=== PATIENT | male | born 1960 | race African-American/Black ===

== ENCOUNTER 2022-03-25 19:58 | Emergency (ER) | payer OTHER ==
[~2022-03-25] VITALS: Ht 175.3 cm; Wt 68.0 kg
[2022-03-25 21:55] LABS: HEMATOCRIT. 42.3 % (42.0-52.0); LYMPHOCYTES % 15.1 % (20.0-50.0); MEAN CORPUSCULAR HEMOGLOBIN 27.8 pg (28.0-32.0); MEAN CORPUSCULAR VOLUME 83.6 fL (80.0-94.0); MEAN PLATELET VOLUME 8.5 fl (7.4-10.4); MONOCYTES % 9.3 % (2.0-8.0); NEUTROPHILS % 74.6 % (40.0-76.0); PLATELET 256 x1000/uL (130-400); RED BLOOD CELL COUNT 5.05 mill/uL (4.7-6.1); RED CELL DISTRIBUTION WIDTH 14.4 % (11.6-14.6)
[2022-03-25 22:08] LABS: CHLORIDE 104 mEq/L (98-107)
[2022-03-26 00:06] VITALS: BP 139/92
== END 2022-03-26 00:05 | disposition home or self-care (01) ==
LOC: ER 19:58
DX: I89.0 Lymphedema, not elsewhere classified (principal); I10 Essential (primary) hypertension; Z98.890 Other specified postprocedural states; W01.0XXA Fall on same level from slipping, tripping and stumbling without subsequent striking against object, initial encounter; Y93.89 Activity, other specified; Y92.018 Other place in single-family (private) house as the place of occurrence of the external cause
CPT/HCPCS: 36415; 71045; 80053; 83880; 84484; 85025; 93970; 99285

== ENCOUNTER 2022-11-17 10:02 | Inpatient (IN) | payer OTHER ==
[~2022-11-17] VITALS: Ht 172.7 cm; Wt 56.2 kg
[2022-11-17 13:12] LABS: HEMATOCRIT. 35.8 % (42.0-52.0); MEAN CORPUSCULAR HEMOGLOBIN 29.3 pg (28.0-32.0); MEAN CORPUSCULAR VOLUME 87.6 fL (80.0-94.0); MEAN PLATELET VOLUME 9.3 fl (7.4-10.4); PLATELET 197 x1000/uL (130-400); RED BLOOD CELL COUNT 4.08 mill/uL (4.7-6.1); RED CELL DISTRIBUTION WIDTH 15.1 % (11.6-14.6)
[2022-11-17 13:15] LABS: CHLORIDE 96 mEq/L (98-107)
[2022-11-17 14:18] LABS: PLATELET ESTIMATE NORMAL
[2022-11-17 14:25] LABS: CHLORIDE 94 mEq/L (98-107)
[2022-11-17] MEDS ORDERED: ENOXAPARIN 60MG/0.6ML SYR SUBCUT NR (16:00)
[2022-11-17 16:12] LABS: T4 FREE 1.51 ng/dL (0.76-1.46)
[2022-11-17 17:12] LABS: CLARITY URINE CLEAR (CLEAR); COLOR URINE DARK YELLOW (YELLOW); KETONES URINE NEGATIVE (NEGATIVE); LEUKOCYTE ESTERASE URINE NEGATIVE (NEGATIVE); NITRITE URINE NEGATIVE (NEGATIVE); OCCULT BLOOD URINE NEGATIVE (NEGATIVE); PROTEIN URINE TRACE (NEGATIVE); SPECIFIC GRAVITY URINE 1.018 (1.005-1.030)
[2022-11-17] MEDS: ASPIRIN 81MG EC TABLET PO SCH (17:18)
[2022-11-18] VITALS (8 sets, daily range): BP systolic 82–127; BP diastolic 56–82
[2022-11-18 06:40] LABS: HEMATOCRIT. 32.8 % (42.0-52.0); HEMOGLOBIN. 11.1 g/dL (14.0-18.0); MEAN CORPUSCULAR HEMOGLOBIN 29.6 pg (28.0-32.0); MEAN CORPUSCULAR VOLUME 87.4 fL (80.0-94.0); MEAN PLATELET VOLUME 9.6 fl (7.4-10.4); PLATELET 168 x1000/uL (130-400); RED BLOOD CELL COUNT 3.75 mill/uL (4.7-6.1); RED CELL DISTRIBUTION WIDTH 15.3 % (11.6-14.6)
[2022-11-18 06:42] LABS: CHLORIDE 95 mEq/L (98-107)
[2022-11-18] MEDS: ASPIRIN 81MG EC TABLET PO SCH (08:41)
[2022-11-18] MEDS ORDERED: POTASSIUM CHLORIDE 20MEQ TABLET SR PO NR (08:45)
[2022-11-18] MEDS: PIPERACILLIN/TAZOBACTAM 3.375 G in DEXTROSE 5% WATER 50 ML IV SCH ×2 (13:04→22:24)
[2022-11-18] MEDS: SODIUM CHLORIDE 0.9% 1,000 ML IV SCH ×2 (13:04→22:24)
[2022-11-18] MEDS ORDERED: IOHEXOL-300 100 ML BOTTLE ONE (18:51)
[2022-11-18] MEDS ORDERED: ONDANSETRON HCL 4MG/2ML INJ IV PRN (23:15)
[2022-11-18] MEDS ORDERED: ALBUTEROL (0.083%) 2.5MG/3ML NEB HHN PRN (23:15)
[2022-11-18] MEDS ORDERED: ACETAMINOPHEN 325MG TABLET PO PRN (23:15)
[2022-11-18] MEDS ORDERED: IPRATROPIUM/ALBUTEROL 0.5-3(2.5)MG/3ML NEB HHN PRN (23:15)
[2022-11-18] MEDS ORDERED: IPRATROPIUM BROMIDE (0.02%) 0.5MG/2.5ML NEB HHN PRN (23:15)
[2022-11-19] VITALS (7 sets, daily range): BP systolic 96–116; BP diastolic 70–82
[2022-11-19 06:06] LABS: CHLORIDE 99 mEq/L (98-107)
[2022-11-19 06:14] LABS: BASOPHILS % 0.2 % (0.0-2.0); EOSINOPHILS % 0.4 % (0.0-5.0); HEMATOCRIT. 33.4 % (42.0-52.0); HEMOGLOBIN. 11.3 g/dL (14.0-18.0); LYMPHOCYTES % 10.7 % (20.0-50.0); MEAN CORPUSCULAR HEMOGLOBIN 29.7 pg (28.0-32.0); MEAN CORPUSCULAR VOLUME 87.7 fL (80.0-94.0); MEAN PLATELET VOLUME 9.9 fl (7.4-10.4); MONOCYTES % 9.7 % (2.0-8.0); PLATELET 186 x1000/uL (130-400); RED CELL DISTRIBUTION WIDTH 14.8 % (11.6-14.6)
[2022-11-19] MEDS: PIPERACILLIN/TAZOBACTAM 3.375 G in DEXTROSE 5% WATER 50 ML IV SCH ×3 (06:39→21:23)
[2022-11-19] MEDS ORDERED: IPRATROPIUM BROMIDE (0.02%) 0.5MG/2.5ML NEB HHN PRN (09:45)
[2022-11-19] MEDS ORDERED: IPRATROPIUM/ALBUTEROL 0.5-3(2.5)MG/3ML NEB HHN PRN (09:45)
[2022-11-19] MEDS ORDERED: ALBUTEROL (0.083%) 2.5MG/3ML NEB HHN PRN (09:45)
[2022-11-19 09:58] LABS: PLATELET ESTIMATE NN
[2022-11-19] MEDS ORDERED: POTASSIUM CHLORIDE 20MEQ TABLET SR PO NR (10:00)
[2022-11-19] MEDS: ASPIRIN 81MG EC TABLET PO SCH (10:11)
[2022-11-19] MEDS: MIDODRINE HCL 5MG TABLET PO SCH ×3 (10:11→17:00)
[2022-11-19] MEDS: SODIUM CHLORIDE 0.9% 1,000 ML IV SCH ×2 (10:14→13:06)
[2022-11-19] MEDS: ACETYLCYSTEINE 100MG/ML 10% VIAL 4ML INH SCH ×2 (11:09→21:50)
[2022-11-19] MEDS ORDERED: IPRATROPIUM/ALBUTEROL 0.5-3(2.5)MG/3ML NEB HHN SCH (12:00)
[2022-11-19] MEDS: IPRATROPIUM BROMIDE (0.02%) 0.5MG/2.5ML NEB HHN SCH (15:24)
[2022-11-19] MEDS: ALBUTEROL (0.083%) 2.5MG/3ML NEB HHN SCH ×3 (15:24→21:50)
[2022-11-19 17:42] LABS: HEPATITIS B SURFACE ANTIGEN NEGATIVE
[2022-11-20] VITALS: BP 117/81
[2022-11-20] MEDS: ALBUTEROL (0.083%) 2.5MG/3ML NEB HHN SCH ×4 (02:06→20:10)
[2022-11-20] MEDS: IPRATROPIUM BROMIDE (0.02%) 0.5MG/2.5ML NEB HHN SCH ×4 (02:07→20:10)
[2022-11-20 04:00] VITALS: BP 103/70
[2022-11-20] MEDS: PIPERACILLIN/TAZOBACTAM 3.375 G in DEXTROSE 5% WATER 50 ML IV SCH ×3 (05:51→21:12)
[2022-11-20 06:53] LABS: BASOPHILS % 0.3 % (0.0-2.0); EOSINOPHILS % 0.5 % (0.0-5.0); HEMATOCRIT. 29.5 % (42.0-52.0); HEMOGLOBIN. 10.2 g/dL (14.0-18.0); LYMPHOCYTES % 12.7 % (20.0-50.0); MEAN CORPUSCULAR VOLUME 86.6 fL (80.0-94.0); MONOCYTES % 13.2 % (2.0-8.0); NEUTROPHILS % 73.3 % (40.0-76.0); PLATELET 205 x1000/uL (130-400); RED BLOOD CELL COUNT 3.41 mill/uL (4.7-6.1); RED CELL DISTRIBUTION WIDTH 14.8 % (11.6-14.6)
[2022-11-20 07:07] LABS: CHLORIDE 103 mEq/L (98-107)
[2022-11-20 08:00] VITALS: BP 109/78
[2022-11-20] MEDS: MIDODRINE HCL 5MG TABLET PO SCH ×3 (08:24→17:00)
[2022-11-20] MEDS: ASPIRIN 81MG EC TABLET PO SCH (08:24)
[2022-11-20] MEDS ORDERED: POTASSIUM CHLORIDE 20MEQ TABLET SR PO NR ×2 (08:30→21:00)
[2022-11-20 12:00] VITALS: BP 104/73
[2022-11-20] MEDS ORDERED: TAMSULOSIN HCL 0.4MG SR CAPSULE PO SCH (12:15)
[2022-11-20] MEDS ORDERED: ASPI-1406 PO (15:52)
[2022-11-20] MEDS ORDERED: ALBU90AE INH (15:52)
[2022-11-20] MEDS ORDERED: AZIT500T8 MT (15:52)
[2022-11-20] MEDS ORDERED: MIDO5TAB4 PO ×2 (15:52)
[2022-11-20] MEDS ORDERED: GUAI600T26 MT (15:52)
[2022-11-20] MEDS ORDERED: ATOR40TA70 MT (15:55)
[2022-11-20 16:00] VITALS: BP 129/88
[2022-11-20] MEDS: ACETYLCYSTEINE 100MG/ML 10% VIAL 4ML INH SCH ×2 (16:26→20:14)
[2022-11-21 00:08] VITALS: BP 108/71
[2022-11-21] MEDS: IPRATROPIUM BROMIDE (0.02%) 0.5MG/2.5ML NEB HHN SCH ×4 (02:09→21:11)
[2022-11-21] MEDS: ALBUTEROL (0.083%) 2.5MG/3ML NEB HHN SCH ×4 (02:09→21:11)
[2022-11-21 04:00] VITALS: BP 123/90
[2022-11-21 06:18] LABS: CHLORIDE 103 mEq/L (98-107)
[2022-11-21] MEDS: PIPERACILLIN/TAZOBACTAM 3.375 G in DEXTROSE 5% WATER 50 ML IV SCH ×3 (06:35→21:46)
[2022-11-21 06:39] LABS: HEMATOCRIT. 28.7 % (42.0-52.0); HEMOGLOBIN. 10.1 g/dL (14.0-18.0); MEAN CORPUSCULAR HEMOGLOBIN 30.6 pg (28.0-32.0); MEAN CORPUSCULAR VOLUME 86.4 fL (80.0-94.0); MEAN PLATELET VOLUME 9.1 fl (7.4-10.4); PLATELET 222 x1000/uL (130-400); RED BLOOD CELL COUNT 3.32 mill/uL (4.7-6.1); RED CELL DISTRIBUTION WIDTH 14.8 % (11.6-14.6)
[2022-11-21 08:00] VITALS: BP 116/84
[2022-11-21] MEDS: ACETYLCYSTEINE 100MG/ML 10% VIAL 4ML INH SCH ×2 (08:31→21:00)
[2022-11-21] MEDS: MIDODRINE HCL 5MG TABLET PO SCH ×3 (09:00→15:17)
[2022-11-21] MEDS: ASPIRIN 81MG EC TABLET PO SCH (09:47)
[2022-11-21 12:00] VITALS: BP 115/83
[2022-11-21] MEDS ORDERED: REGADENOSON 0.4 MG/5 ML IV NR (12:30)
[2022-11-21 15:12] LABS: PLATELET ESTIMATE NORMAL
[2022-11-21 16:00] VITALS: BP 136/94
[2022-11-21 20:00] VITALS: BP 134/84
[2022-11-22] VITALS (7 sets, daily range): BP systolic 100–131; BP diastolic 63–93
[2022-11-22] MEDS: ALBUTEROL (0.083%) 2.5MG/3ML NEB HHN SCH ×3 (01:02→21:00)
[2022-11-22] MEDS: IPRATROPIUM BROMIDE (0.02%) 0.5MG/2.5ML NEB HHN SCH ×4 (01:02→21:00)
[2022-11-22 04:09] LABS: HIV SCREEN 4G Non Reactive (Non Reactive)
[2022-11-22] MEDS: PIPERACILLIN/TAZOBACTAM 3.375 G in DEXTROSE 5% WATER 50 ML IV SCH ×3 (06:14→21:03)
[2022-11-22 06:30] LABS: CHLORIDE 102 mEq/L (98-107)
[2022-11-22 06:45] LABS: BASOPHILS % 0.5 % (0.0-2.0); HEMATOCRIT. 30.6 % (42.0-52.0); HEMOGLOBIN. 10.5 g/dL (14.0-18.0); LYMPHOCYTES % 15.7 % (20.0-50.0); MEAN CORPUSCULAR HEMOGLOBIN 30.2 pg (28.0-32.0); MEAN CORPUSCULAR VOLUME 87.5 fL (80.0-94.0); MEAN PLATELET VOLUME 8.6 fl (7.4-10.4); MONOCYTES % 14.5 % (2.0-8.0); NEUTROPHILS % 67.3 % (40.0-76.0); PLATELET 238 x1000/uL (130-400); RED BLOOD CELL COUNT 3.49 mill/uL (4.7-6.1); RED CELL DISTRIBUTION WIDTH 15.3 % (11.6-14.6)
[2022-11-22] MEDS: ACETYLCYSTEINE 100MG/ML 10% VIAL 4ML INH SCH ×2 (07:38→21:00)
[2022-11-22] MEDS: MIDODRINE HCL 5MG TABLET PO SCH (09:00)
[2022-11-22] MEDS ORDERED: REGADENOSON 0.4 MG/5 ML IV ONE (09:08)
[2022-11-22] MEDS: ASPIRIN 81MG EC TABLET PO SCH (10:54)
[2022-11-23] VITALS: BP 130/80
[2022-11-23] MEDS: IPRATROPIUM BROMIDE (0.02%) 0.5MG/2.5ML NEB HHN SCH ×2 (00:48→08:30)
[2022-11-23] MEDS: ALBUTEROL (0.083%) 2.5MG/3ML NEB HHN SCH ×2 (00:48→08:31)
[2022-11-23 04:00] VITALS: BP 142/89
[2022-11-23] MEDS: PIPERACILLIN/TAZOBACTAM 3.375 G in DEXTROSE 5% WATER 50 ML IV SCH (06:14)
[2022-11-23 08:00] VITALS: BP 132/94
[2022-11-23] MEDS: ASPIRIN 81MG EC TABLET PO SCH (09:19)
[2022-11-23 11:20] VITALS: BP 132/94
[2022-11-23 12:00] VITALS: BP 134/95
== END 2022-11-23 14:30 | disposition home health service (06) | DRG 720 ==
LOC: ER 10:02 → MICUSO 18:07 → EDBEDREQ 18:09 → EDBEDREQTM 18:09 → 5EST 11-18 03:59 → 8WST 11-19 12:58
PROVIDERS: ADMIT Internal Medicine; ATTEND Internal Medicine
DX: A41.9 Sepsis, unspecified organism (principal); I21.4 Non-ST elevation (NSTEMI) myocardial infarction; I31.39 Other pericardial effusion (noninflammatory); J18.9 Pneumonia, unspecified organism; I42.9 Cardiomyopathy, unspecified; R64 Cachexia; R62.7 Adult failure to thrive; I95.9 Hypotension, unspecified; I11.0 Hypertensive heart disease with heart failure; I50.22 Chronic systolic (congestive) heart failure; E11.9 Type 2 diabetes mellitus without complications; D64.9 Anemia, unspecified; Z20.822 Contact with and (suspected) exposure to COVID-19; E78.5 Hyperlipidemia, unspecified; R53.81 Other malaise; I25.10 Atherosclerotic heart disease of native coronary artery without angina pectoris; E87.6 Hypokalemia; Z91.14 Patient's other noncompliance with medication regimen; Z82.49 Family history of ischemic heart disease and other diseases of the circulatory system; Z91.199 Patient's noncompliance with other medical treatment and regimen due to unspecified reason; Z79.84 Long term (current) use of oral hypoglycemic drugs; I25.2 Old myocardial infarction; Z79.899 Other long term (current) drug therapy; Z68.1 Body mass index [BMI] 19.9 or less, adult
CPT/HCPCS: 36415; 71045; 71260; 74177; 78452; 80048; 80053; 80061; 81003; 82105; 82378; 82962; 83036; 83605; 83735; 83880; 84145; 84439; 84443; 84480; 84484; 85025; 86705; 86709; 86803; 87340; 87389; 87426; 93005; 93017; 93306; 94640; 97162; 97166; 99291; A9500; J2543; J2785; J7030; J7060; J7608; Q9967